=== PATIENT | male | born 1945 | race Caucasian/White ===

== ENCOUNTER → 2019-07-03 | Outpatient (CLI) | payer OTHER ==
--- NOTE | 2019-07-03 18:42 | PCVCIMAG ---
EXAM: BILATERAL LOWER EXTREMITY ARTERIAL DUPLEX INDICATION: Peripheral Arterial Disease. Leg pain. FINDINGS: Right Leg: Satisfactory arterial waveforms throughout the common/profunda/superficial femoral, popliteal, anterior tibial, peroneal, and posterior tibial arteries. No flow limiting stenosis seen. Left Leg: Satisfactory arterial waveforms throughout the common/profunda/superficial femoral, popliteal, anterior tibial, peroneal, and posterior tibial arteries. No flow limiting stenosis seen. IMPRESSION: No flow limiting stenosis in the right lower extremity. No flow limiting stenosis in the left lower extremity. LOC:[id number]
== END | disposition home or self-care (01) ==
LOC: PCVCIMAG 11:04
PROVIDERS: ATTEND Podiatrist Foot & Ankle Surgery
DX: Z01.818 Encounter for other preprocedural examination (principal); I73.9 Peripheral vascular disease, unspecified
CPT/HCPCS: 93925